=== PATIENT | female | born 1975 | race Caucasian/White ===

== ENCOUNTER 2024-12-07 14:33 | Outpatient (CLI) | payer MEDICAID | END 2024-12-07 23:59 | disposition home or self-care (01) | LOC: MRI 14:33 | PROVIDERS: ATTEND Nurse Practitioner Adult Health | DX: S32.020A Wedge compression fracture of second lumbar vertebra, initial encounter for closed fracture (principal); M47.817 Spondylosis without myelopathy or radiculopathy, lumbosacral region; M48.07 Spinal stenosis, lumbosacral region; G40.909 Epilepsy, unspecified, not intractable, without status epilepticus; M51.26 Other intervertebral disc displacement, lumbar region; X58.XXXA Exposure to other specified factors, initial encounter; Y93.89 Activity, other specified; Y92.89 Other specified places as the place of occurrence of the external cause; Y99.8 Other external cause status | CPT/HCPCS: 72148 ==